=== PATIENT | male | born 1970 | race Caucasian/White ===

== ENCOUNTER 2018-12-31 14:09 | Inpatient (IN) | payer MEDICAID ==
[~2018-12-31] VITALS: Ht 180.3 cm; Wt 92.8 kg
[~2018-12-31 14:09] MED LIST: INSREG SQ; LIDOCAINE/PF 2% 5 ML VIAL INJ ONE; METF500T20 PO; ONDANSETRON HCL 4 MG/2 ML VIAL IVP ONE; PROPOFOL 1% 20 ML VIAL IVP ONE; SUCCINYLCHOLINE CHLORIDE 20 MG/ML 10 ML VIAL IVP ONE
[2018-12-31] MEDS ORDERED: CEPH250 PO (14:43)
[2018-12-31] MEDS ORDERED: METF-960 PO ×3 (14:43→17:39)
[2018-12-31] MEDS ORDERED: LOSA50TA64 PO (14:43)
[2018-12-31] MEDS ORDERED: ATOR20TA86 PO (14:43)
[2018-12-31 14:55] LABS: GLUCOSE,POINT OF CARE 160 MG/DL (70-110)
[2018-12-31] MEDS ORDERED: VANCOMYCIN HCL 1 GM/D5% WATER 200 ML IV ONE (15:45)
[2018-12-31 16:19] LABS: BASOPHILS % (AUTO) 0.3 % (0.0-2.0); EOSINOPHILS % (AUTO) 0 % (1.0-6.0); HEMATOCRIT 40.2 % (41-53); HEMOGLOBIN 13.3 g/dL (13.5-17.5); LYMPHOCYTES # (AUTO) 2.1 K/uL (1.0-4.8); LYMPHOCYTES % (AUTO) 21.5 % (22.0-44.0); MEAN CORPUSCULAR HEMOGLOBIN 30.7 pg (26.0-34.0); MEAN CORPUSCULAR HGB CONC 33.1 G/dL (31.0-37.0); MEAN CORPUSCULAR VOLUME 93 fL (80-100); MONOCYTES # (AUTO) 0.5 K/uL (0.1-1.0); NEUTROPHILS # (AUTO) 7.1 K/uL (1.8-7.7); NEUTROPHILS % (AUTO) 73.2 % (40.0-70.0); PLATELET COUNT (AUTO) 269 K/uL (150-450); RED BLOOD CELL COUNT(AUTO) 4.33 MIL/uL (4.50-5.90); RED CELL DISTRIBUTION WIDTH 13.1 % (11.5-14.5)
[2018-12-31] MEDS ORDERED: SODIUM CHLORIDE 0.9% 100 ML ONE (16:23)
[2018-12-31] MEDS ORDERED: IOVERSOL 350 MG/ML 100 ML VIAL ONE (16:23)
[2018-12-31 16:31] LABS: ANION GAP 7 mmol/L (8-16); CALCIUM, TOTAL 9.4 mg/dL (8.8-10.5); CARBON DIOXIDE 30 mmol/L (22-29); CHLORIDE 101 mmol/L (98-107); CREATININE 0.73 mg/dL (0.60-1.30); GLOMERULAR FILTR. RATE CALC > 60 mL/min (>60); GLUCOSE,RANDOM 145 mg/dL (70-110); SODIUM SERUM 138 mmol/L (136-145); UREA NITROGEN, BLOOD 12 mg/dL (7-18)
[2018-12-31 16:34] LABS: ALANINE AMINOTRANSFERASE 16 U/L (12-78); ALBUMIN 3.5 g/dL (3.4-5.0); ALKALINE PHOSPHATASE 92 U/L (46-116); ASPARTATE AMINOTRANSFERASE 13 U/L (15-37); BILIRUBIN,TOTAL 0.2 mg/dL (0.1-1.0); TOTAL PROTEIN, SERUM 8.8 g/dL (6.4-8.2)
[2018-12-31 16:41] LABS: LACTIC ACID 1.5 mmol/L (0.4-2.0)
[2018-12-31 16:44] LABS: B-TYPE NATRIURETIC PEPTIDE 18 pg/mL (0-100)
[2018-12-31] MEDS ORDERED: CEPH500 PO (17:39)
[2018-12-31] MEDS ORDERED: INSNPH SQ (17:39)
[2018-12-31] MEDS ORDERED: ONDANSETRON HCL 4 MG/2 ML VIAL IVP PRN (17:45)
[2018-12-31] MEDS ORDERED: 0.9% SODIUM CHLORIDE 10 ML SYRINGE IVP PRN (17:45)
[2018-12-31] MEDS ORDERED: ACETAMINOPHEN 325 MG TABLET PO PRN (17:45)
[2018-12-31 18:10] VITALS: BP 141/94
[2018-12-31 18:27] LABS: GLUCOMETER DEV NAME(LOC) 6N.1; GLUCOSE,POINT OF CARE 117 MG/DL (70-110)
[2018-12-31] MEDS ORDERED: OxyCODONE HCL/ACETAMINOPHEN 5-325 MG TABLET PO PRN (19:45)
[2018-12-31 19:59] VITALS: BP 138/86
[2018-12-31 23:24] VITALS: BP 133/79
[2019-01-01 02:18] LABS: GLUCOMETER DEV NAME(LOC) 6N.1; GLUCOSE,POINT OF CARE 145 MG/DL (70-110)
[2019-01-01] MEDS ORDERED: DEXTROSE 50%-WATER 25 GM/50 ML SYRINGE IVP PRN (03:00)
[2019-01-01] MEDS ORDERED: ONDANSETRON HCL 4 MG/2 ML VIAL IVP PRN (03:00)
[2019-01-01] MEDS ORDERED: OxyCODONE HCL/ACETAMINOPHEN 5-325 MG TABLET PO PRN ×2 (03:00)
[2019-01-01] MEDS ORDERED: 0.9% SODIUM CHLORIDE 10 ML SYRINGE IVP PRN (03:00)
[2019-01-01 04:30] VITALS: BP 111/67
[2019-01-01 06:04] LABS: GLUCOMETER DEV NAME(LOC) 6N.1; GLUCOSE,POINT OF CARE 127 MG/DL (70-110)
[2019-01-01] MEDS ORDERED: SODIUM CHLORIDE 0.9% 500 ML IV ONE (06:23)
[2019-01-01] MEDS: VANCOMYCIN HCL 1.5 GM in DEXTROSE 5%-WATER 250 ML IV SCH ×3 (06:47→23:09)
[2019-01-01 07:28] VITALS: BP 120/74
[2019-01-01] MEDS: LOSARTAN POTASSIUM 50 MG TABLET PO SCH (08:40)
[2019-01-01] MEDS: ATORVASTATIN CALCIUM 20 MG TABLET PO SCH (08:41)
[2019-01-01] MEDS ORDERED: FAMOTIDINE 20 MG TABLET PO SCH (09:00)
[2019-01-01] MEDS ORDERED: DOCUSATE SODIUM 100 MG CAPSULE PO SCH (09:00)
[2019-01-01] MEDS ORDERED: ACETAMINOPHEN 325 MG TABLET PO PRN (10:00)
[2019-01-01] MEDS: CefTRIAXone 1 GM/DEXTROSE 50 ML IV SCH (11:06)
[2019-01-01] MEDS: SODIUM CHLORIDE 0.9% 1,000 ML IV SCH (11:26)
[2019-01-01] MEDS: INSULIN LISPRO 100 UNITS/ML SQ PRN ×2 (11:46→17:33)
[2019-01-01 12:02] LABS: GLUCOMETER DEV NAME(LOC) 6N.1; GLUCOSE,POINT OF CARE 168 MG/DL (70-110)
[2019-01-01 15:09] VITALS: BP 114/70
[2019-01-01 19:51] VITALS: BP 109/65
[2019-01-01] MEDS: FAMOTIDINE 20 MG TABLET PO SCH (20:53)
[2019-01-01 23:53] VITALS: BP 111/61
[2019-01-02] VITALS (7 sets, daily range): BP systolic 110–144; BP diastolic 58–91
[2019-01-02] MEDS: SODIUM CHLORIDE 0.9% 1,000 ML IV SCH (05:23)
[2019-01-02] MEDS: INSULIN LISPRO 100 UNITS/ML SQ PRN ×2 (05:24→12:04)
[2019-01-02] MEDS: VANCOMYCIN HCL 1.5 GM in DEXTROSE 5%-WATER 250 ML IV SCH (05:25)
[2019-01-02 06:01] LABS: BASOPHILS % (AUTO) 0.3 % (0.0-2.0); EOSINOPHILS % (AUTO) 0.5 % (1.0-6.0); HEMATOCRIT 33.6 % (41-53); HEMOGLOBIN 11.4 g/dL (13.5-17.5); LYMPHOCYTES # (AUTO) 2.2 K/uL (1.0-4.8); LYMPHOCYTES % (AUTO) 32.9 % (22.0-44.0); MEAN CORPUSCULAR HEMOGLOBIN 31.1 pg (26.0-34.0); MEAN CORPUSCULAR HGB CONC 33.9 G/dL (31.0-37.0); MEAN CORPUSCULAR VOLUME 92 fL (80-100); MONOCYTES # (AUTO) 0.5 K/uL (0.1-1.0); MONOCYTES % (AUTO) 7.6 % (2.0-9.0); NEUTROPHILS % (AUTO) 58.7 % (40.0-70.0); PLATELET COUNT (AUTO) 213 K/uL (150-450); RED BLOOD CELL COUNT(AUTO) 3.67 MIL/uL (4.50-5.90); RED CELL DISTRIBUTION WIDTH 12.7 % (11.5-14.5)
[2019-01-02 06:13] LABS: HEMOGLOBIN A1C 11.1 % (4.5-6.2)
[2019-01-02 06:17] LABS: ANION GAP 4 mmol/L (8-16); CALCIUM, TOTAL 8.5 mg/dL (8.8-10.5); CARBON DIOXIDE 29 mmol/L (22-29); CHLORIDE 106 mmol/L (98-107); CHOL/HDL RATIO 2.6 (4.2-7.3); CHOLESTEROL 121 mg/dL (131-200); CREATININE 0.63 mg/dL (0.60-1.30); GLOMERULAR FILTR. RATE CALC > 60 mL/min (>60); GLUCOSE,RANDOM 161 mg/dL (70-110); HDL CHOLESTEROL 46 mg/dL (40-60); LDL CHOL (CALC.) 60 mg/dL (0-130); SODIUM SERUM 139 mmol/L (136-145); TRIGLYCERIDES 74 mg/dL (15-150); UREA NITROGEN, BLOOD 10 mg/dL (7-18); VANCOMYCIN,RANDOM 16.8 mcg/mL (25.0-50.0)
[2019-01-02 06:29] LABS: GLUCOMETER DEV NAME(LOC) 6N.1; GLUCOSE,POINT OF CARE 119 MG/DL (70-110)
[2019-01-02 06:29] LABS: GLUCOMETER DEV NAME(LOC) 6N.1; GLUCOSE,POINT OF CARE 237 MG/DL (70-110)
[2019-01-02] MEDS: ATORVASTATIN CALCIUM 20 MG TABLET PO SCH (08:18)
[2019-01-02] MEDS: LOSARTAN POTASSIUM 50 MG TABLET PO SCH (08:19)
[2019-01-02] MEDS: FAMOTIDINE 20 MG TABLET PO SCH ×2 (08:19→21:00)
[2019-01-02] MEDS: CefTRIAXone 1 GM/DEXTROSE 50 ML IV SCH (11:07)
[2019-01-02 11:57] LABS: GLUCOMETER DEV NAME(LOC) 6N.2; GLUCOSE,POINT OF CARE 176 MG/DL (70-110)
[2019-01-02 11:57] LABS: GLUCOMETER DEV NAME(LOC) 6N.2; GLUCOSE,POINT OF CARE 146 MG/DL (70-110)
[2019-01-02] MEDS ORDERED: GADOBUTROL 1 MMOL/ML 10 ML VIAL IVP ONE (13:52)
[2019-01-02 14:17] LABS: C-REACTIVE PROTEIN QUANT 0.86 mg/dL (0.00-0.30)
[2019-01-02 20:02] LABS: GLUCOMETER DEV NAME(LOC) 6N.2; GLUCOSE,POINT OF CARE 196 MG/DL (70-110)
[2019-01-03 04:43] VITALS: BP 132/76
[2019-01-03] MEDS ORDERED: RINGERS SOLUTION,LACTATED 1,000 ML IV ONE ×2 (05:27→08:00)
[2019-01-03 06:27] LABS: BASOPHILS % (AUTO) 0.3 % (0.0-2.0); EOSINOPHILS % (AUTO) 0.7 % (1.0-6.0); HEMATOCRIT 34.2 % (41-53); HEMOGLOBIN 11.6 g/dL (13.5-17.5); LYMPHOCYTES # (AUTO) 1.8 K/uL (1.0-4.8); LYMPHOCYTES % (AUTO) 26.9 % (22.0-44.0); MEAN CORPUSCULAR HEMOGLOBIN 31.2 pg (26.0-34.0); MEAN CORPUSCULAR HGB CONC 33.9 G/dL (31.0-37.0); MEAN CORPUSCULAR VOLUME 92 fL (80-100); MONOCYTES # (AUTO) 0.5 K/uL (0.1-1.0); MONOCYTES % (AUTO) 6.8 % (2.0-9.0); NEUTROPHILS # (AUTO) 4.4 K/uL (1.8-7.7); NEUTROPHILS % (AUTO) 65.3 % (40.0-70.0); PLATELET COUNT (AUTO) 207 K/uL (150-450); RED BLOOD CELL COUNT(AUTO) 3.72 MIL/uL (4.50-5.90); RED CELL DISTRIBUTION WIDTH 12.5 % (11.5-14.5)
[2019-01-03 06:29] LABS: GLUCOMETER DEV NAME(LOC) 4E.2; GLUCOSE,POINT OF CARE 155 MG/DL (70-110)
[2019-01-03 06:39] LABS: ANION GAP 7 mmol/L (8-16); CALCIUM, TOTAL 8.6 mg/dL (8.8-10.5); CARBON DIOXIDE 28 mmol/L (22-29); CHLORIDE 105 mmol/L (98-107); GLOMERULAR FILTR. RATE CALC > 60 mL/min (>60); GLUCOSE,RANDOM 183 mg/dL (70-110); POTASSIUM 3.9 mmol/L (3.5-5.1); SODIUM SERUM 140 mmol/L (136-145); UREA NITROGEN, BLOOD 9 mg/dL (7-18)
[2019-01-03] MEDS ORDERED: LIDOCAINE/PF 1% 30 ML VIAL ONE (06:51)
[2019-01-03] MEDS ORDERED: BUPIVACAINE HCL/PF 0.5% 30 ML VIAL ONE (06:51)
[2019-01-03] MEDS ORDERED: SODIUM CL IRRIG SOLN BAG 3,000 ML IRRIG ONE (06:52)
[2019-01-03] MEDS ORDERED: BACITRACIN 50,000 UNITS/VIAL ONE (06:52)
[2019-01-03 07:58] LABS: GLUCOMETER DEV NAME(LOC) 6N.2; GLUCOSE,POINT OF CARE 175 MG/DL (70-110)
[2019-01-03] MEDS ORDERED: MEPERIDINE-PF 25 MG/ML VIAL IVP PRN (09:15)
[2019-01-03] MEDS ORDERED: FentaNYL CITRATE-PF 100 MCG/2 ML VIAL IVP PRN (09:15)
[2019-01-03] MEDS ORDERED: HYDROmorphone 2 MG/ML SYRINGE IVP PRN (09:15)
[2019-01-03] MEDS ORDERED: VANCOMYCIN HCL 1 GM/VIAL ONE (09:19)
[2019-01-03] MEDS ORDERED: THROMBIN, BOVINE 20000 UNITS/VIAL POWDER TP ONE (09:47)
[2019-01-03] MEDS ORDERED: GELATIN SPONGE,ABSORBABLE 100 MM TP ONE (09:47)
[2019-01-03] MEDS: OxyCODONE HCL/ACETAMINOPHEN 5-325 MG TABLET PO PRN ×2 (11:37→20:21)
[2019-01-03] MEDS: DOCUSATE SODIUM 100 MG CAPSULE PO PRN (11:37)
[2019-01-03] MEDS: ATORVASTATIN CALCIUM 20 MG TABLET PO SCH (11:37)
[2019-01-03] MEDS: LOSARTAN POTASSIUM 50 MG TABLET PO SCH (11:37)
[2019-01-03] MEDS: FAMOTIDINE 20 MG TABLET PO SCH ×2 (11:37→20:20)
[2019-01-03 11:51] VITALS: BP 170/81
[2019-01-03] MEDS: INSULIN LISPRO 100 UNITS/ML SQ PRN ×3 (11:57→21:36)
[2019-01-03] MEDS ORDERED: MIDAZOLAM HCL 2 MG/2 ML VIAL IVP ONE (12:00)
[2019-01-03] MEDS ORDERED: KETAMINE HCL 50 MG/ML 10 ML VIAL IVP ONE (12:00)
[2019-01-03] MEDS ORDERED: FentaNYL CITRATE-PF 100 MCG/2 ML VIAL IVP ONE (12:00)
[2019-01-03 12:13] LABS: GLUCOMETER DEV NAME(LOC) 4E.2; GLUCOSE,POINT OF CARE 201 MG/DL (70-110)
[2019-01-03 15:48] VITALS: BP 125/75
[2019-01-03] MEDS: SODIUM CHLORIDE 0.9% 1,000 ML IV SCH (15:54)
[2019-01-03] MEDS: PIPERACILLIN/TAZO 3.375 GM/D5W 50 ML IV SCH ×2 (17:36→23:13)
[2019-01-03 17:54] LABS: GLUCOMETER DEV NAME(LOC) 4E.2; GLUCOSE,POINT OF CARE 204 MG/DL (70-110)
[2019-01-03 19:30] VITALS: BP 109/63
[2019-01-03] MEDS: OXYGEN THERAPY IH SCH (20:00)
[2019-01-03 23:40] VITALS: BP 126/74
[2019-01-04 00:13] LABS: GLUCOMETER DEV NAME(LOC) 6N.2; GLUCOSE,POINT OF CARE 261 MG/DL (70-110)
[2019-01-04] MEDS: SODIUM CHLORIDE 0.9% 1,000 ML IV SCH ×3 (04:42→22:44)
[2019-01-04 04:51] VITALS: BP 126/81
[2019-01-04] MEDS: PIPERACILLIN/TAZO 3.375 GM/D5W 50 ML IV SCH ×4 (05:04→22:44)
[2019-01-04] MEDS: INSULIN LISPRO 100 UNITS/ML SQ PRN ×4 (06:31→20:18)
[2019-01-04 07:20] LABS: BASOPHILS % (AUTO) 1.3 % (0.0-2.0); EOSINOPHILS % (AUTO) 0.4 % (1.0-6.0); HEMATOCRIT 31.8 % (41-53); HEMOGLOBIN 10.9 g/dL (13.5-17.5); LYMPHOCYTES # (AUTO) 2.3 K/uL (1.0-4.8); LYMPHOCYTES % (AUTO) 22.4 % (22.0-44.0); MEAN CORPUSCULAR HEMOGLOBIN 31.6 pg (26.0-34.0); MEAN CORPUSCULAR HGB CONC 34.3 G/dL (31.0-37.0); MEAN CORPUSCULAR VOLUME 92 fL (80-100); MONOCYTES # (AUTO) 0.6 K/uL (0.1-1.0); MONOCYTES % (AUTO) 5.6 % (2.0-9.0); NEUTROPHILS # (AUTO) 7.2 K/uL (1.8-7.7); NEUTROPHILS % (AUTO) 70.3 % (40.0-70.0); RED BLOOD CELL COUNT(AUTO) 3.44 MIL/uL (4.50-5.90); RED CELL DISTRIBUTION WIDTH 13.1 % (11.5-14.5)
[2019-01-04 07:34] LABS: ANION GAP 6 mmol/L (8-16); CALCIUM, TOTAL 8.5 mg/dL (8.8-10.5); CARBON DIOXIDE 29 mmol/L (22-29); CHLORIDE 106 mmol/L (98-107); CREATININE 0.65 mg/dL (0.60-1.30); GLOMERULAR FILTR. RATE CALC > 60 mL/min (>60); GLUCOSE,RANDOM 154 mg/dL (70-110); POTASSIUM 4.4 mmol/L (3.5-5.1); SODIUM SERUM 141 mmol/L (136-145); UREA NITROGEN, BLOOD 9 mg/dL (7-18)
[2019-01-04 07:35] VITALS: BP 127/80
[2019-01-04 07:45] LABS: GLUCOMETER DEV NAME(LOC) 6N.2; GLUCOSE,POINT OF CARE 140 MG/DL (70-110)
[2019-01-04] MEDS: MULTIVITAMINS WITH MINERALS, THERAPEUTIC TABLET PO SCH (07:46)
[2019-01-04] MEDS: FAMOTIDINE 20 MG TABLET PO SCH ×2 (07:46→20:17)
[2019-01-04] MEDS: ATORVASTATIN CALCIUM 20 MG TABLET PO SCH (07:46)
[2019-01-04] MEDS: LOSARTAN POTASSIUM 50 MG TABLET PO SCH (07:46)
[2019-01-04] MEDS: OxyCODONE HCL/ACETAMINOPHEN 5-325 MG TABLET PO PRN ×3 (07:46→19:05)
[2019-01-04] MEDS: OXYGEN THERAPY IH SCH ×2 (08:00→20:00)
[2019-01-04 09:03] LABS: PLATELET COUNT (AUTO) 175 K/uL (150-450)
[2019-01-04 11:22] VITALS: BP 133/81
[2019-01-04 13:55] LABS: GLUCOMETER DEV NAME(LOC) 4E.2; GLUCOSE,POINT OF CARE 222 MG/DL (70-110)
[2019-01-04 15:58] VITALS: BP 127/83
[2019-01-04] MEDS ORDERED: SODIUM CHLORIDE 0.9% IRRIG BTL 1,000 ML IRRIG ONE (17:40)
[2019-01-04 19:10] LABS: GLUCOMETER DEV NAME(LOC) 4E.2; GLUCOSE,POINT OF CARE 147 MG/DL (70-110)
[2019-01-04 19:58] VITALS: BP 124/79
[2019-01-04 21:46] LABS: GLUCOMETER DEV NAME(LOC) 4E.2; GLUCOSE,POINT OF CARE 157 MG/DL (70-110)
[2019-01-05] VITALS (7 sets, daily range): BP systolic 114–155; BP diastolic 65–97
[2019-01-05] MEDS: OxyCODONE HCL/ACETAMINOPHEN 5-325 MG TABLET PO PRN ×4 (02:01→20:58)
[2019-01-05] MEDS: PIPERACILLIN/TAZO 3.375 GM/D5W 50 ML IV SCH ×4 (05:05→22:45)
[2019-01-05] MEDS: OXYGEN THERAPY IH SCH (08:00)
[2019-01-05 08:03] LABS: BASOPHILS % (AUTO) 0.3 % (0.0-2.0); EOSINOPHILS % (AUTO) 0.6 % (1.0-6.0); HEMATOCRIT 33.4 % (41-53); HEMOGLOBIN 11.2 g/dL (13.5-17.5); LYMPHOCYTES % (AUTO) 33.6 % (22.0-44.0); MEAN CORPUSCULAR HEMOGLOBIN 31.1 pg (26.0-34.0); MEAN CORPUSCULAR HGB CONC 33.5 G/dL (31.0-37.0); MEAN CORPUSCULAR VOLUME 93 fL (80-100); MONOCYTES # (AUTO) 0.4 K/uL (0.1-1.0); MONOCYTES % (AUTO) 6.1 % (2.0-9.0); NEUTROPHILS # (AUTO) 3.5 K/uL (1.8-7.7); NEUTROPHILS % (AUTO) 59.4 % (40.0-70.0); PLATELET COUNT (AUTO) 202 K/uL (150-450)
[2019-01-05] MEDS: LOSARTAN POTASSIUM 50 MG TABLET PO SCH (08:03)
[2019-01-05] MEDS: FAMOTIDINE 20 MG TABLET PO SCH ×2 (08:03→20:10)
[2019-01-05] MEDS: ATORVASTATIN CALCIUM 20 MG TABLET PO SCH (08:03)
[2019-01-05] MEDS: MULTIVITAMINS WITH MINERALS, THERAPEUTIC TABLET PO SCH (08:03)
[2019-01-05 08:12] LABS: ANION GAP 8 mmol/L (8-16); CALCIUM, TOTAL 8.5 mg/dL (8.8-10.5); CARBON DIOXIDE 30 mmol/L (22-29); CHLORIDE 106 mmol/L (98-107); CREATININE 0.63 mg/dL (0.60-1.30); GLOMERULAR FILTR. RATE CALC > 60 mL/min (>60); GLUCOSE,RANDOM 123 mg/dL (70-110); POTASSIUM 4.1 mmol/L (3.5-5.1); SODIUM SERUM 144 mmol/L (136-145); UREA NITROGEN, BLOOD 7 mg/dL (7-18)
[2019-01-05 09:45] LABS: GLUCOMETER DEV NAME(LOC) 6N.2; GLUCOSE,POINT OF CARE 111 MG/DL (70-110)
[2019-01-05] MEDS: INSULIN LISPRO 100 UNITS/ML SQ PRN ×3 (11:37→20:10)
[2019-01-05 16:17] LABS: GLUCOMETER DEV NAME(LOC) 6N.2; GLUCOSE,POINT OF CARE 219 MG/DL (70-110)
[2019-01-05] MEDS ORDERED: SODIUM CHLORIDE 0.9% 500 ML IV ONE (16:23)
[2019-01-05 17:31] LABS: GLUCOMETER DEV NAME(LOC) 6N.2; GLUCOSE,POINT OF CARE 168 MG/DL (70-110)
[2019-01-06] MEDS: PIPERACILLIN/TAZO 3.375 GM/D5W 50 ML IV SCH ×2 (04:40→11:38)
[2019-01-06 05:05] VITALS: BP 129/78
[2019-01-06] MEDS: OxyCODONE HCL/ACETAMINOPHEN 5-325 MG TABLET PO PRN ×2 (05:12→16:29)
[2019-01-06] MEDS: INSULIN LISPRO 100 UNITS/ML SQ PRN ×4 (05:51→20:21)
[2019-01-06 06:26] LABS: ANION GAP 4 mmol/L (8-16); CALCIUM, TOTAL 8.9 mg/dL (8.8-10.5); CARBON DIOXIDE 31 mmol/L (22-29); CHLORIDE 104 mmol/L (98-107); CREATININE 0.62 mg/dL (0.60-1.30); GLOMERULAR FILTR. RATE CALC > 60 mL/min (>60); GLUCOSE,RANDOM 132 mg/dL (70-110); POTASSIUM 4.2 mmol/L (3.5-5.1); SODIUM SERUM 139 mmol/L (136-145); UREA NITROGEN, BLOOD 9 mg/dL (7-18)
[2019-01-06 06:47] LABS: HEMATOCRIT 33.8 % (41-53); HEMOGLOBIN 11.3 g/dL (13.5-17.5); MEAN CORPUSCULAR HEMOGLOBIN 30.7 pg (26.0-34.0); MEAN CORPUSCULAR HGB CONC 33.5 G/dL (31.0-37.0); MEAN CORPUSCULAR VOLUME 92 fL (80-100); NEUTROPHILS % (AUTO) 56.5 % (40.0-70.0); PLATELET COUNT (AUTO) 208 K/uL (150-450); RED BLOOD CELL COUNT(AUTO) 3.69 MIL/uL (4.50-5.90); RED CELL DISTRIBUTION WIDTH 12.7 % (11.5-14.5)
[2019-01-06 06:48] LABS: BASOPHILS % (AUTO) 0.3 % (0.0-2.0); EOSINOPHILS % (AUTO) 0.8 % (1.0-6.0); LYMPHOCYTES # (AUTO) 2.1 K/uL (1.0-4.8); LYMPHOCYTES % (AUTO) 35.8 % (22.0-44.0); MONOCYTES # (AUTO) 0.4 K/uL (0.1-1.0); MONOCYTES % (AUTO) 6.6 % (2.0-9.0); NEUTROPHILS # (AUTO) 3.3 K/uL (1.8-7.7)
[2019-01-06 08:03] VITALS: BP 126/79
[2019-01-06] MEDS: ATORVASTATIN CALCIUM 20 MG TABLET PO SCH (08:22)
[2019-01-06] MEDS: LOSARTAN POTASSIUM 50 MG TABLET PO SCH (08:22)
[2019-01-06] MEDS: MULTIVITAMINS WITH MINERALS, THERAPEUTIC TABLET PO SCH (08:22)
[2019-01-06] MEDS: FAMOTIDINE 20 MG TABLET PO SCH ×2 (08:22→20:20)
[2019-01-06 10:44] LABS: GLUCOMETER DEV NAME(LOC) 6N.2; GLUCOSE,POINT OF CARE 251 MG/DL (70-110)
[2019-01-06 11:30] VITALS: BP 130/88
[2019-01-06 15:25] LABS: GLUCOMETER DEV NAME(LOC) 4E.2; GLUCOSE,POINT OF CARE 129 MG/DL (70-110)
[2019-01-06 15:25] LABS: GLUCOMETER DEV NAME(LOC) 4E.2; GLUCOSE,POINT OF CARE 216 MG/DL (70-110)
[2019-01-06 16:01] VITALS: BP 122/76
[2019-01-06 17:07] LABS: GLUCOMETER DEV NAME(LOC) 4E.2; GLUCOSE,POINT OF CARE 128 MG/DL (70-110)
[2019-01-06] MEDS: AMPICILLIN SODIUM 2 GM/NS 100 ML IV SCH ×2 (17:20→21:20)
[2019-01-06 18:36] LABS: INR 1.1 (0.9-1.1); PROTHROMBIN TIME 10.7 SEC (9.4-11.6)
[2019-01-06 20:05] VITALS: BP 121/76
[2019-01-06 23:41] VITALS: BP 114/76
[2019-01-07] MEDS: AMPICILLIN SODIUM 2 GM/NS 100 ML IV SCH ×6 (01:07→20:34)
[2019-01-07] MEDS: OxyCODONE HCL/ACETAMINOPHEN 5-325 MG TABLET PO PRN ×2 (05:06→19:25)
[2019-01-07 05:13] VITALS: BP 121/78
[2019-01-07 05:29] LABS: GLUCOMETER DEV NAME(LOC) 6N.2; GLUCOSE,POINT OF CARE 195 MG/DL (70-110)
[2019-01-07 05:55] LABS: BASOPHILS % (AUTO) 0.3 % (0.0-2.0); EOSINOPHILS % (AUTO) 0.9 % (1.0-6.0); HEMATOCRIT 34.3 % (41-53); HEMOGLOBIN 11.7 g/dL (13.5-17.5); LYMPHOCYTES # (AUTO) 2.2 K/uL (1.0-4.8); LYMPHOCYTES % (AUTO) 39.9 % (22.0-44.0); MEAN CORPUSCULAR HEMOGLOBIN 31.4 pg (26.0-34.0); MEAN CORPUSCULAR HGB CONC 34.2 G/dL (31.0-37.0); MEAN CORPUSCULAR VOLUME 92 fL (80-100); MONOCYTES # (AUTO) 0.4 K/uL (0.1-1.0); MONOCYTES % (AUTO) 6.8 % (2.0-9.0); NEUTROPHILS # (AUTO) 2.9 K/uL (1.8-7.7); NEUTROPHILS % (AUTO) 52.1 % (40.0-70.0); PLATELET COUNT (AUTO) 219 K/uL (150-450); RED BLOOD CELL COUNT(AUTO) 3.74 MIL/uL (4.50-5.90); RED CELL DISTRIBUTION WIDTH 12.9 % (11.5-14.5)
[2019-01-07] MEDS: INSULIN LISPRO 100 UNITS/ML SQ PRN ×4 (05:59→20:35)
[2019-01-07 06:03] LABS: ANION GAP 3 mmol/L (8-16); CALCIUM, TOTAL 8.9 mg/dL (8.8-10.5); CARBON DIOXIDE 32 mmol/L (22-29); CHLORIDE 105 mmol/L (98-107); CREATININE 0.72 mg/dL (0.60-1.30); GLOMERULAR FILTR. RATE CALC > 60 mL/min (>60); GLUCOSE,RANDOM 131 mg/dL (70-110); POTASSIUM 4.3 mmol/L (3.5-5.1); SODIUM SERUM 140 mmol/L (136-145)
[2019-01-07 06:09] LABS: UREA NITROGEN, BLOOD 10 mg/dL (7-18)
[2019-01-07 07:37] VITALS: BP 111/71
[2019-01-07] MEDS: OXYGEN THERAPY IH SCH ×2 (08:00→20:00)
[2019-01-07] MEDS: FAMOTIDINE 20 MG TABLET PO SCH ×2 (08:36→20:34)
[2019-01-07] MEDS: MULTIVITAMINS WITH MINERALS, THERAPEUTIC TABLET PO SCH (08:36)
[2019-01-07] MEDS: LOSARTAN POTASSIUM 50 MG TABLET PO SCH (08:37)
[2019-01-07] MEDS: ATORVASTATIN CALCIUM 20 MG TABLET PO SCH (08:37)
[2019-01-07 11:39] VITALS: BP 125/78
[2019-01-07 12:11] LABS: GLUCOMETER DEV NAME(LOC) 4E.2; GLUCOSE,POINT OF CARE 126 MG/DL (70-110)
[2019-01-07] MEDS ORDERED: HEPARIN SODIUM 1000 UNITS/NS 500 ML ONE (13:29)
[2019-01-07 14:03] LABS: GLUCOMETER DEV NAME(LOC) 6N.2; GLUCOSE,POINT OF CARE 170 MG/DL (70-110)
[2019-01-07 16:00] VITALS: BP 122/77
[2019-01-07 19:40] VITALS: BP 125/75
[2019-01-07 20:18] LABS: GLUCOMETER DEV NAME(LOC) 4E.2; GLUCOSE,POINT OF CARE 166 MG/DL (70-110)
[2019-01-07] MEDS ORDERED: SODIUM CHLORIDE 0.9% 500 ML IV ONE (21:18)
[2019-01-07 22:25] LABS: GLUCOMETER DEV NAME(LOC) 6N.2; GLUCOSE,POINT OF CARE 156 MG/DL (70-110)
[2019-01-08] VITALS: BP 102/57
[2019-01-08] MEDS: AMPICILLIN SODIUM 2 GM/NS 100 ML IV SCH ×6 (00:40→21:07)
[2019-01-08 05:26] VITALS: BP 108/62
[2019-01-08 07:06] LABS: GLUCOMETER DEV NAME(LOC) 6N.2; GLUCOSE,POINT OF CARE 115 MG/DL (70-110)
[2019-01-08 07:40] VITALS: BP 135/81
[2019-01-08] MEDS: OXYGEN THERAPY IH SCH ×2 (08:00→20:00)
[2019-01-08] MEDS: OxyCODONE HCL/ACETAMINOPHEN 5-325 MG TABLET PO PRN ×2 (08:17→16:37)
[2019-01-08] MEDS: ATORVASTATIN CALCIUM 20 MG TABLET PO SCH (08:17)
[2019-01-08] MEDS: MULTIVITAMINS WITH MINERALS, THERAPEUTIC TABLET PO SCH (08:17)
[2019-01-08] MEDS: FAMOTIDINE 20 MG TABLET PO SCH ×2 (08:17→21:06)
[2019-01-08] MEDS: LOSARTAN POTASSIUM 50 MG TABLET PO SCH (08:19)
[2019-01-08 11:20] VITALS: BP 128/75
[2019-01-08] MEDS: INSULIN LISPRO 100 UNITS/ML SQ PRN ×3 (12:04→21:11)
[2019-01-08 13:48] LABS: GLUCOMETER DEV NAME(LOC) 6N.2; GLUCOSE,POINT OF CARE 185 MG/DL (70-110)
[2019-01-08 15:30] VITALS: BP 114/76
[2019-01-08 18:35] LABS: GLUCOMETER DEV NAME(LOC) 4E.2; GLUCOSE,POINT OF CARE 149 MG/DL (70-110)
[2019-01-08 19:54] VITALS: BP 118/68
[2019-01-08 22:25] LABS: GLUCOMETER DEV NAME(LOC) 6N.2; GLUCOSE,POINT OF CARE 277 MG/DL (70-110)
[2019-01-09] VITALS (8 sets, daily range): BP systolic 113–159; BP diastolic 66–84
[2019-01-09] MEDS: AMPICILLIN SODIUM 2 GM/NS 100 ML IV SCH ×6 (00:41→20:31)
[2019-01-09] MEDS ORDERED: SODIUM CHLORIDE 0.9% 500 ML IV ONE (03:26)
[2019-01-09] MEDS: OxyCODONE HCL/ACETAMINOPHEN 5-325 MG TABLET PO PRN ×3 (05:04→23:48)
[2019-01-09] MEDS: INSULIN LISPRO 100 UNITS/ML SQ PRN ×4 (06:07→20:32)
[2019-01-09 07:52] LABS: GLUCOMETER DEV NAME(LOC) 4E.2; GLUCOSE,POINT OF CARE 133 MG/DL (70-110)
[2019-01-09] MEDS: OXYGEN THERAPY IH SCH ×2 (08:00→20:00)
[2019-01-09] MEDS: FAMOTIDINE 20 MG TABLET PO SCH ×2 (08:38→20:30)
[2019-01-09] MEDS: MULTIVITAMINS WITH MINERALS, THERAPEUTIC TABLET PO SCH (08:38)
[2019-01-09] MEDS: LOSARTAN POTASSIUM 50 MG TABLET PO SCH (08:38)
[2019-01-09] MEDS: ATORVASTATIN CALCIUM 20 MG TABLET PO SCH (08:38)
[2019-01-09 13:12] LABS: GLUCOMETER DEV NAME(LOC) 6N.2; GLUCOSE,POINT OF CARE 155 MG/DL (70-110)
[2019-01-09 20:45] LABS: GLUCOMETER DEV NAME(LOC) 4E.2; GLUCOSE,POINT OF CARE 153 MG/DL (70-110)
[2019-01-10] MEDS: AMPICILLIN SODIUM 2 GM/NS 100 ML IV SCH ×6 (00:48→20:09)
[2019-01-10 02:57] LABS: GLUCOMETER DEV NAME(LOC) 6N.2; GLUCOSE,POINT OF CARE 180 MG/DL (70-110)
[2019-01-10 05:00] VITALS: BP 133/93
[2019-01-10] MEDS: OXYGEN THERAPY IH SCH ×2 (08:00→20:00)
[2019-01-10 08:14] VITALS: BP 125/83
[2019-01-10] MEDS: FAMOTIDINE 20 MG TABLET PO SCH ×2 (08:26→20:09)
[2019-01-10] MEDS: DOCUSATE SODIUM 100 MG CAPSULE PO PRN (08:26)
[2019-01-10] MEDS: ATORVASTATIN CALCIUM 20 MG TABLET PO SCH (08:26)
[2019-01-10] MEDS: LOSARTAN POTASSIUM 50 MG TABLET PO SCH (08:26)
[2019-01-10] MEDS: MULTIVITAMINS WITH MINERALS, THERAPEUTIC TABLET PO SCH (08:26)
[2019-01-10] MEDS: INSULIN LISPRO 100 UNITS/ML SQ PRN ×3 (11:39→20:10)
[2019-01-10 11:51] LABS: GLUCOMETER DEV NAME(LOC) 6N.2; GLUCOSE,POINT OF CARE 116 MG/DL (70-110)
[2019-01-10 12:26] VITALS: BP 131/73
[2019-01-10] MEDS: OxyCODONE HCL/ACETAMINOPHEN 5-325 MG TABLET PO PRN ×2 (12:28→17:06)
[2019-01-10 15:59] VITALS: BP 117/78
[2019-01-10 19:15] LABS: GLUCOMETER DEV NAME(LOC) 4E.2; GLUCOSE,POINT OF CARE 133 MG/DL (70-110)
[2019-01-10 19:43] VITALS: BP 120/77
[2019-01-10 21:17] LABS: GLUCOMETER DEV NAME(LOC) 4E.2; GLUCOSE,POINT OF CARE 189 MG/DL (70-110)
[2019-01-10 23:32] VITALS: BP 114/66
[2019-01-11] MEDS: AMPICILLIN SODIUM 2 GM/NS 100 ML IV SCH ×6 (01:00→20:49)
[2019-01-11] MEDS: OxyCODONE HCL/ACETAMINOPHEN 5-325 MG TABLET PO PRN ×2 (01:01→14:45)
[2019-01-11 04:40] VITALS: BP 124/76
[2019-01-11 07:45] VITALS: BP 118/80
[2019-01-11] MEDS: OXYGEN THERAPY IH SCH ×2 (08:00→20:00)
[2019-01-11] MEDS: DOCUSATE SODIUM 100 MG CAPSULE PO PRN (08:38)
[2019-01-11] MEDS: LOSARTAN POTASSIUM 50 MG TABLET PO SCH (08:38)
[2019-01-11] MEDS: FAMOTIDINE 20 MG TABLET PO SCH ×2 (08:38→20:48)
[2019-01-11] MEDS: ATORVASTATIN CALCIUM 20 MG TABLET PO SCH (08:38)
[2019-01-11] MEDS: MULTIVITAMINS WITH MINERALS, THERAPEUTIC TABLET PO SCH (08:38)
[2019-01-11] MEDS ORDERED: SODIUM CHLORIDE 0.9% 500 ML IV ONE (08:41)
[2019-01-11 08:45] LABS: GLUCOMETER DEV NAME(LOC) 6N.2; GLUCOSE,POINT OF CARE 107 MG/DL (70-110)
[2019-01-11] MEDS: INSULIN LISPRO 100 UNITS/ML SQ PRN ×3 (11:27→22:19)
[2019-01-11 11:37] VITALS: BP 118/77
[2019-01-11 15:59] VITALS: BP 127/87
[2019-01-11 16:37] LABS: GLUCOMETER DEV NAME(LOC) 4E.2; GLUCOSE,POINT OF CARE 129 MG/DL (70-110)
[2019-01-11 20:24] VITALS: BP 133/83
[2019-01-12] VITALS (7 sets, daily range): BP systolic 110–127; BP diastolic 70–84
[2019-01-12] MEDS: OxyCODONE HCL/ACETAMINOPHEN 5-325 MG TABLET PO PRN ×2 (01:50→13:50)
[2019-01-12] MEDS: AMPICILLIN SODIUM 2 GM/NS 100 ML IV SCH ×6 (01:51→21:11)
[2019-01-12 07:32] LABS: GLUCOMETER DEV NAME(LOC) 6N.2; GLUCOSE,POINT OF CARE 192 MG/DL (70-110)
[2019-01-12 07:32] LABS: GLUCOMETER DEV NAME(LOC) 6N.2; GLUCOSE,POINT OF CARE 120 MG/DL (70-110)
[2019-01-12] MEDS: OXYGEN THERAPY IH SCH (08:00)
[2019-01-12] MEDS: DOCUSATE SODIUM 100 MG CAPSULE PO PRN (08:07)
[2019-01-12] MEDS: MULTIVITAMINS WITH MINERALS, THERAPEUTIC TABLET PO SCH (08:07)
[2019-01-12] MEDS: FAMOTIDINE 20 MG TABLET PO SCH ×2 (08:07→21:16)
[2019-01-12] MEDS: LOSARTAN POTASSIUM 50 MG TABLET PO SCH (08:07)
[2019-01-12] MEDS: ATORVASTATIN CALCIUM 20 MG TABLET PO SCH (08:07)
[2019-01-12] MEDS: INSULIN LISPRO 100 UNITS/ML SQ PRN ×3 (11:10→21:21)
[2019-01-12] MEDS ORDERED: SODIUM CHLORIDE 0.9% 500 ML IV ONE (12:01)
[2019-01-12 14:08] LABS: GLUCOMETER DEV NAME(LOC) 6N.2; GLUCOSE,POINT OF CARE 181 MG/DL (70-110)
[2019-01-12 17:32] LABS: GLUCOMETER DEV NAME(LOC) 6N.2; GLUCOSE,POINT OF CARE 158 MG/DL (70-110)
[2019-01-13] MEDS: AMPICILLIN SODIUM 2 GM/NS 100 ML IV SCH ×6 (00:51→20:16)
[2019-01-13] MEDS: OxyCODONE HCL/ACETAMINOPHEN 5-325 MG TABLET PO PRN ×2 (00:53→13:59)
[2019-01-13] MEDS: OXYGEN THERAPY IH SCH ×2 (00:54→08:00)
[2019-01-13 02:26] LABS: GLUCOMETER DEV NAME(LOC) 4E.2; GLUCOSE,POINT OF CARE 238 MG/DL (70-110)
[2019-01-13 03:58] VITALS: BP 118/75
[2019-01-13 06:29] LABS: GLUCOMETER DEV NAME(LOC) 6N.2; GLUCOSE,POINT OF CARE 120 MG/DL (70-110)
[2019-01-13 07:27] VITALS: BP 107/81
[2019-01-13] MEDS: LOSARTAN POTASSIUM 50 MG TABLET PO SCH (08:36)
[2019-01-13] MEDS: DOCUSATE SODIUM 100 MG CAPSULE PO PRN (08:36)
[2019-01-13] MEDS: FAMOTIDINE 20 MG TABLET PO SCH ×2 (08:36→20:15)
[2019-01-13] MEDS: MULTIVITAMINS WITH MINERALS, THERAPEUTIC TABLET PO SCH (08:36)
[2019-01-13] MEDS: ATORVASTATIN CALCIUM 20 MG TABLET PO SCH (08:36)
[2019-01-13 11:28] VITALS: BP 132/91
[2019-01-13 11:44] LABS: GLUCOMETER DEV NAME(LOC) 4E.2; GLUCOSE,POINT OF CARE 163 MG/DL (70-110)
[2019-01-13 15:16] VITALS: BP 114/75
[2019-01-13] MEDS: INSULIN LISPRO 100 UNITS/ML SQ PRN ×2 (16:55→20:17)
[2019-01-13 17:42] LABS: GLUCOMETER DEV NAME(LOC) 4E.2; GLUCOSE,POINT OF CARE 161 MG/DL (70-110)
[2019-01-13 19:30] VITALS: BP 123/75
[2019-01-13 23:09] VITALS: BP 122/77
[2019-01-14] MEDS: OxyCODONE HCL/ACETAMINOPHEN 5-325 MG TABLET PO PRN ×2 (00:45→15:58)
[2019-01-14] MEDS: AMPICILLIN SODIUM 2 GM/NS 100 ML IV SCH ×6 (00:46→21:35)
[2019-01-14 05:00] VITALS: BP 125/75
[2019-01-14] MEDS: INSULIN LISPRO 100 UNITS/ML SQ PRN ×3 (05:30→18:21)
[2019-01-14 07:34] VITALS: BP 120/78
[2019-01-14 08:10] LABS: GLUCOMETER DEV NAME(LOC) 4E.2; GLUCOSE,POINT OF CARE 136 MG/DL (70-110)
[2019-01-14 08:10] LABS: GLUCOMETER DEV NAME(LOC) 4E.2; GLUCOSE,POINT OF CARE 125 MG/DL (70-110)
[2019-01-14] MEDS: MULTIVITAMINS WITH MINERALS, THERAPEUTIC TABLET PO SCH (09:16)
[2019-01-14] MEDS: ATORVASTATIN CALCIUM 20 MG TABLET PO SCH (09:16)
[2019-01-14] MEDS: FAMOTIDINE 20 MG TABLET PO SCH ×2 (09:16→19:57)
[2019-01-14] MEDS: LOSARTAN POTASSIUM 50 MG TABLET PO SCH (09:16)
[2019-01-14 11:50] VITALS: BP 121/79
[2019-01-14 15:44] VITALS: BP 108/81
[2019-01-14] MEDS ORDERED: SODIUM CHLORIDE 0.9% 500 ML IV ONE (18:06)
[2019-01-14 19:54] LABS: GLUCOMETER DEV NAME(LOC) 4E.2; GLUCOSE,POINT OF CARE 153 MG/DL (70-110)
[2019-01-14 19:54] LABS: GLUCOMETER DEV NAME(LOC) 4E.2; GLUCOSE,POINT OF CARE 182 MG/DL (70-110)
[2019-01-14 20:46] VITALS: BP 129/75
[2019-01-15 00:18] VITALS: BP 128/79
[2019-01-15] MEDS: AMPICILLIN SODIUM 2 GM/NS 100 ML IV SCH ×5 (00:37→16:23)
[2019-01-15] MEDS: OxyCODONE HCL/ACETAMINOPHEN 5-325 MG TABLET PO PRN ×2 (02:23→09:20)
[2019-01-15 04:58] VITALS: BP 114/73
[2019-01-15] MEDS: INSULIN LISPRO 100 UNITS/ML SQ PRN ×3 (05:03→18:01)
[2019-01-15 07:43] VITALS: BP 106/74
[2019-01-15] MEDS: ATORVASTATIN CALCIUM 20 MG TABLET PO SCH (08:35)
[2019-01-15] MEDS: DOCUSATE SODIUM 100 MG CAPSULE PO PRN (08:35)
[2019-01-15] MEDS: LOSARTAN POTASSIUM 50 MG TABLET PO SCH (08:35)
[2019-01-15] MEDS: MULTIVITAMINS WITH MINERALS, THERAPEUTIC TABLET PO SCH (08:35)
[2019-01-15] MEDS: FAMOTIDINE 20 MG TABLET PO SCH (08:35)
[2019-01-15 11:16] LABS: GLUCOMETER DEV NAME(LOC) 4E.2; GLUCOSE,POINT OF CARE 106 MG/DL (70-110)
[2019-01-15 11:16] LABS: GLUCOMETER DEV NAME(LOC) 4E.2; GLUCOSE,POINT OF CARE 137 MG/DL (70-110)
[2019-01-15] MEDS ORDERED: SODIUM CHLORIDE 0.9% 250 ML IV ONE (11:59)
[2019-01-15 12:29] VITALS: BP 111/88
[2019-01-15 17:48] LABS: GLUCOMETER DEV NAME(LOC) 6N.2; GLUCOSE,POINT OF CARE 154 MG/DL (70-110)
[2019-01-15 17:48] LABS: GLUCOMETER DEV NAME(LOC) 6N.2; GLUCOSE,POINT OF CARE 157 MG/DL (70-110)
== END 2019-01-15 18:49 | DRG 305 ==
LOC: EMS 14:12 → 6N 16:38 → 4E 01-02 01:08
PROVIDERS: ADMIT Internal Medicine; ATTEND Internal Medicine
PROC: 0Y6R0Z0 Detachment at Right 2nd Toe, Complete, Open Approach (ICD-10-PCS; 2019-01-03)
PROC: 0S9P0ZZ Drainage of Right Toe Phalangeal Joint, Open Approach (ICD-10-PCS; 2019-01-03)
PROC: 0Y6M0ZB Detachment at Right Foot, Partial 2nd Ray, Open Approach (ICD-10-PCS; principal; 2019-01-03 09:00)
PROC: B5181ZA Fluoroscopy of Superior Vena Cava using Low Osmolar Contrast, Guidance (ICD-10-PCS; 2019-01-13)
PROC: 02HV33Z Insertion of Infusion Device into Superior Vena Cava, Percutaneous Approach (ICD-10-PCS; 2019-01-13)
PROC: B548ZZA Ultrasonography of Superior Vena Cava, Guidance (ICD-10-PCS; 2019-01-13)
DX: E11.69 Type 2 diabetes mellitus with other specified complication (principal); E11.40 Type 2 diabetes mellitus with diabetic neuropathy, unspecified; E11.52 Type 2 diabetes mellitus with diabetic peripheral angiopathy with gangrene; L03.115 Cellulitis of right lower limb; E11.621 Type 2 diabetes mellitus with foot ulcer; E11.65 Type 2 diabetes mellitus with hyperglycemia; M86.8X7 Other osteomyelitis, ankle and foot; L97.519 Non-pressure chronic ulcer of other part of right foot with unspecified severity; E78.00 Pure hypercholesterolemia, unspecified; I10 Essential (primary) hypertension; E78.5 Hyperlipidemia, unspecified; L02.611 Cutaneous abscess of right foot; Z91.14 Patient's other noncompliance with medication regimen; Z83.3 Family history of diabetes mellitus
CPT/HCPCS: 36245; 36569; 73701; 73720; 76937; 83036; 83605; 86140; 87040; 87070; 87081; 87101; 87205; 88305; 88311; 93925; A9585; G0378; J0290; J0330; J0696; J1644; J2250; J2405; J2543; J2704; J3010; J3370; J3490; J7030; J7040; J7050; J7060; J7120